=== PATIENT | male | born 1955 | race Caucasian/White ===

== ENCOUNTER 2018-10-11 08:01 | Day surgery (SDC) | payer BC ==
[~2018-10-11] VITALS: Ht 170.2 cm; Wt 93.0 kg
[~2018-10-11 08:01] MED LIST: DOXA1TAB38 PO; LIDOCAINE 2% (SDV) 5 ML INJ ONE; PANT20TA2 PO; RANI150T35 PO
[2018-10-11 08:59] VITALS: Ht 170.2 cm; Wt 93.0 kg
[2018-10-11] MEDS ORDERED: metformin (09:09)
[2018-10-11] MEDS ORDERED: aspirin (09:09)
[2018-10-11] MEDS ORDERED: prevacid (09:09)
[2018-10-11] MEDS ORDERED: lisinopril (09:09)
[2018-10-11] MEDS ORDERED: cardura (09:09)
[2018-10-11] MEDS ORDERED: atorvastatin (09:09)
--- NOTE | 2018-10-11 09:58 | PREAC ---
Date/Time of Note Date/Time of Note DATE: 10/11/18 TIME: 09:57 Anesthesia Eval and Record Evaluation Time Pre-Procedure Interview DATE: 10/11/18 TIME: 09:57 Age 63 Sex male NPO: 8 hrs Preoperative diagnosis gerd Planned procedure egd, colonoscopy Past Medical History Past Medical History: Includes Cardio: HTN Endo: Diabetes GI: GERD, Obesity Surgery & Anesthesia Issues No known issue Meds Anticoagulation: No Beta Wendy within 24 hr: No Reason Beta Wendy not given: Pt. not on B-Wendy Reported Medications [cardura] No Conflict Check 10/11/18 [atorvastatin] No Conflict Check 10/11/18 [aspirin] No Conflict Check 10/11/18 [metformin] No Conflict Check 10/11/18 [lisinopril] No Conflict Check 10/11/18 [prevacid] No Conflict Check 10/11/18 Doxazosin Mesylate* (Cardura*) 1 Mg Tablet, 1 MG PO 03/28/11 Ranitidine Hcl* (Zantac*) 150 Mg Capsule, 150 MG PO 03/28/11 Pantoprazole* (Protonix*) 20 Mg Tablet.dr, 20 MG PO 03/28/11 Meds reviewed: Yes Allergies Coded Allergies: No Known Drug Allergies (Verified Allergy, Unknown, 03/28/11) Allergies Reviewed: Yes Labs/Studies Labs Reviewed: Reviewed by anesthesiologist test: N/A Studies: ECG Pre-procedure Exam Airway: Adequate mouth opening, Adequate thyromental dist Mallampati: Mallampati II Teeth: Normal Lung: Normal Heart: Normal ASA Physical Status ASA physical status: 3 Emergency: None Planned Anesthetic General/MAC: Mask, MAC Pre-operative Attestations Prior to commencing anesthesia and surgery, the patient was re-evaluated, there was verification of: *The patient's identity *The results of appropriate recent lab work and preoperative vital signs *The above evaluation not changing prior to induction *Anesthetic plan, risk benefits, alternative and complications discussed with patient/family; questions answered; patient/family understands, accepts and wishes to proceed. NAVNEET DONNELLY Oct 11, 2018 09:58
[2018-10-11 10:02] VITALS: BP 132/83; PULSE 86; RESP 18
[2018-10-11] MEDS ORDERED: PROPOFOL 20 ML ONE (10:08)
[2018-10-11 11:14] VITALS: BP 122/78; RESP 20
--- NOTE | 2018-10-11 12:08 | PAC ---
Date/Time of Note Date/Time of Note DATE: 10/11/18 TIME: 12:08 Post-Anesthesia Notes Post-Anesthesia Note Last documented vital signs Vital Signs Date Temp Pulse Resp B/P (MAP) Pulse Ox O2 O2 Flow FiO2 Time Delivery Rate 10/11/18 20 122/78 97 11:14 (93) 10/11/18 98.0 86 Room Air 10:02 Activity: WNL Respiratory function: WNL Cardiovascular function: WNL Mental status: Baseline Pain reasonably controlled: Yes Hydration appropriate: Yes Nausea/Vomiting absent: Yes NAVNEET DONNELLY Oct 11, 2018 12:08
== END 2018-10-11 11:57 | disposition home or self-care (01) ==
LOC: GIL 08:01
PROVIDERS: ATTEND Internal Medicine Gastroenterology
DX: R19.7 Diarrhea, unspecified (principal); K64.8 Other hemorrhoids; K62.89 Other specified diseases of anus and rectum; K20.9 Esophagitis, unspecified; K29.50 Unspecified chronic gastritis without bleeding
CPT/HCPCS: 43239; 45380; 88305; 88312; Z7610